=== PATIENT | female | born 1960 | race Caucasian/White ===

== ENCOUNTER 2017-01-15 19:40 | Emergency (ER) | payer MEDICAID ==
[2017-01-15] MEDS ORDERED: predniSONE 20 MG TABLET PO STA (21:45)
[2017-01-15] MEDS ORDERED: IPRATROPIUM/ALBUTEROL 3 ML NEB INH STA (21:45)
[2017-01-15] MEDS ORDERED: predniSONE 20 MG TABLET ONE (22:00)
[2017-01-15] MEDS ORDERED: IPRATROPIUM/ALBUTEROL 3 ML NEB INH ONE (22:25)
[2017-01-15] MEDS ORDERED: FUROSEMIDE 20 MG TABLET PO STA (23:59)
[2017-01-16] MEDS ORDERED: FUROSEMIDE 20 MG TABLET ONE (00:03)
== END 2017-01-16 00:20 | disposition home or self-care (01) ==
DX: R06.00 Dyspnea, unspecified (principal); R51 Headache; I10 Essential (primary) hypertension; E10.9 Type 1 diabetes mellitus without complications; Z87.891 Personal history of nicotine dependence
CPT/HCPCS: 36415; 71020; 80053; 81001; 83690; 85025; 94640; 99283; A9270; J7512; J7620